=== PATIENT | male | born 1945 ===

== ENCOUNTER 2017-07-15 11:06 | Day surgery (SDC) | payer MEDICARE, OTHER ==
[~2017-07-15] VITALS: Ht 157.5 cm; Wt 68.3 kg
[2017-07-15] MEDS ORDERED: METF500 PO (11:47)
[2017-07-15] MEDS ORDERED: GLIP10 PO (11:47)
[2017-07-15] MEDS ORDERED: MELO7.5 (11:48)
[2017-07-15] MEDS ORDERED: LOSA50 PO (11:48)
[2017-07-15] MEDS ORDERED: Omeprazole20 M1 (11:48)
[2017-07-15] MEDS ORDERED: Vitamin C100 M1 PO (11:49)
[2017-07-15] MEDS ORDERED: CALCA500S6 PO (11:50)
[2017-07-15] MEDS ORDERED: SILD50TA PO (11:52)
[2017-07-15] MEDS ORDERED: Advair Hfa 230-12 GM (11:52)
[2017-07-15] MEDS ORDERED: TAMS.4ER PO (11:52)
[2017-07-15] MEDS ORDERED: ALBU90OI INH (11:52)
[2017-07-15] MEDS ORDERED: FISH OIL + D31 EACH PO (11:53)
[2017-07-15] MEDS ORDERED: Aspir 8181 MG PO (11:53)
[2017-07-15] MEDS ORDERED: ATOR20 PO (11:53)
[2017-07-15] MEDS ORDERED: ACET500 (11:53)
== END 2017-07-15 13:01 | disposition home or self-care (01) ==
LOC: ORSCSDS 11:06
PROVIDERS: Ophthalmology
PROC: 08RJ3JZ Replacement of Right Lens with Synthetic Substitute, Percutaneous Approach (ICD-10-PCS; principal; 2017-07-15 12:30)
DX: H25.11 Age-related nuclear cataract, right eye (principal); H21.81 Floppy iris syndrome; I10 Essential (primary) hypertension; E11.9 Type 2 diabetes mellitus without complications; J45.909 Unspecified asthma, uncomplicated; Z79.82 Long term (current) use of aspirin; Z79.84 Long term (current) use of oral hypoglycemic drugs; Z79.899 Other long term (current) drug therapy; Z87.891 Personal history of nicotine dependence
CPT/HCPCS: 82947; J2250; J3010; J7040; V2632

== ENCOUNTER 2017-07-29 12:19 | Day surgery (SDC) | payer MEDICARE, OTHER ==
[~2017-07-29] VITALS: Ht 157.5 cm; Wt 68.0 kg
[~2017-07-29 12:19] MED LIST: ACET500; ALBU90OI INH; ATOR20 PO; Advair Hfa 230-12 GM; Aspir 8181 MG PO; CALCA500S6 PO; FISH OIL + D31 EACH PO; GLIP10 PO; LOSA50 PO; MELO7.5; METF500 PO; Omeprazole20 M1; SILD50TA PO; TAMS.4ER PO; Vitamin C100 M1 PO
== END 2017-07-29 14:38 | disposition home or self-care (01) ==
LOC: ORSCSDS 12:19
PROVIDERS: Ophthalmology
PROC: 08RK3JZ Replacement of Left Lens with Synthetic Substitute, Percutaneous Approach (ICD-10-PCS; principal; 2017-07-29 14:00)
DX: H25.12 Age-related nuclear cataract, left eye (principal); H21.81 Floppy iris syndrome; E11.9 Type 2 diabetes mellitus without complications; I10 Essential (primary) hypertension; K21.9 Gastro-esophageal reflux disease without esophagitis; Z79.899 Other long term (current) drug therapy
CPT/HCPCS: 82947; J2250; J7040; V2632